=== PATIENT | female | born 1940 | race African-American/Black ===

== ENCOUNTER → 2018-02-28 | Outpatient (CLI) | payer OTHER, MEDICAID ==
[~2018-02-28] MED LIST: BIMA2.5D OP; CARV25TA2 PO; CLON0.1T PO; COLC1TAB PO; LETR2.5T18 PO; LEVO112T4 PO; LOSA100T7 PO; TRIA1TAB3 PO
--- NOTE | 2018-02-28 15:44 | KCIC ---
Bone densitometry 02/28/2018 1:41 PM Indication: Postmenopausal screening exam. Comparison Study: DEXA scan February 25, 2016.. Discussion: Bone Densitometry was performed with dual photon absorption of the lumbar spine and proximal left femur. Lumbar Spine: Bone average density is 1.43g/cm2 for L1-L4. T-Score is 4. (Prior T score 3.5 Left proximal femur:: Bone average density is 1.079g/cm2. T-Score is 1.1. (Prior T score 0.7) IMPRESSION: Normal bone mineral density of the lumbar spine and left proximal femur, similar to prior exam Note: Definitions established by the World Health Organization: Normal: T-score is -1.0 or above. Osteopenia: T-score is between -1.0 and -2.5. Osteoporosis: T-score is -2.5 or below. Electronically signed by: Julio C Ospina MD (02/28/2018 3:42 PM) [id number]
== END | disposition home or self-care (01) ==
LOC: KCIC DEXA 13:15
PROVIDERS: ATTEND Internal Medicine Hematology & Oncology
DX: Z13.820 Encounter for screening for osteoporosis (principal); Z78.0 Asymptomatic menopausal state; Z85.3 Personal history of malignant neoplasm of breast; Z92.3 Personal history of irradiation
CPT/HCPCS: 77080

== ENCOUNTER → 2018-03-21 | Outpatient (CLI) | payer OTHER, MEDICAID ==
--- NOTE | 2018-03-21 16:46 | KCIC ---
Bilateral diagnostic digital mammograms: Reason for examination: Right breast lump. History of left breast cancer with lumpectomy. Comparison is made to previous studies dated back to 02/06/2015. Interpretation was made with the benefit of CAD. The skin and nipples show no abnormalities. No abnormal axillary lymph nodes are seen. The breast parenchyma is heterogeneously dense. (Breast density: Category C) There are postop changes with residual architectural distortion in the left breast. In the right breast upper inner quadrant in the area of clinical concern there is no focal abnormality seen. There are no new dominant masses, suspicious calcifications or architectural distortion. A few benign calcifications are again seen. Impression: Postoperative changes in the left breast. No evidence of new or recurrent malignancy. Ultrasound to follow. Your patient's mammogram demonstrates that she has dense breast tissue (breast density category C or D), which could hide abnormalities, and if she has other risk factors for breast cancer that have been identified, she might benefit from supplemental screening tests that may be suggested by you as her ordering physician. Dense breast tissue, in and of itself, is a relatively common condition. Therefore, this information is not provided to cause undue concern, but rather to raise your awareness and to promote discussion with your patient regarding the presence of other risk factors, in addition to dense breast tissue. Your patient's mammography results will be sent to her. BI-RADS Category 0: Incomplete. Needs additional imaging evaluation. Right breast ultrasound: Ultrasound examination was performed in the area of clinical concern in the upper inner quadrant and in the axilla. No discrete cystic or solid nodules or architectural distortions are seen. No abnormal lymph nodes are seen in the axilla. IMPRESSION: No focal abnormalities evident in the right breast sonographically. Recommend clinical follow-up and routine mammographic follow-up. BI-RADS Category 2: Benign. "Our facility is accredited by the [employer] Mammography [employer]." This patient's information has been entered into a reminder system for the patient to be notified with the results of her examination and a target date for the next mammogram. Electronically signed by: Rina Guadarrama MD (03/21/2018 4:43 PM) [id number]
== END | disposition home or self-care (01) ==
LOC: KCIC MAMMO 10:09
PROVIDERS: ATTEND Pediatrics
DX: R92.8 Other abnormal and inconclusive findings on diagnostic imaging of breast (principal); Z85.3 Personal history of malignant neoplasm of breast; Z98.890 Other specified postprocedural states
CPT/HCPCS: 76641; 77066

== ENCOUNTER → 2019-03-09 | Outpatient (CLI) | payer OTHER, MEDICAID ==
[~2019-03-09] MED LIST changes: +FEMARA2.5 MG PO; -LETR2.5T18 PO; +LOSA100T14 PO; -LOSA100T7 PO
--- NOTE | 2019-03-09 16:02 | KCIC ---
Bilateral carotid arterial duplex study 03/09/2019 Clinical History: Hypertension. Carotid bruit. Technique: Using a combination of real-time ultrasound imaging and color-flow and pulse Doppler imaging techniques, duplex evaluation of the carotid and vertebral arterial structures within the neck was performed. Multiple images were obtained. Velocity measurements estimating the degree of stenosis are based on NASCET criteria. Findings: Very mild atheromatous/atherosclerotic plaque formation is seen involving both carotid bifurcations and proximal internal carotid arteries. The peak systolic velocities are not significantly elevated. No hemodynamically significant stenosis is seen. The vertebral arteries demonstrate normal antegrade flow. Impression: Very mild atheromatous/atherosclerotic plaque formation is seen involving both carotid bifurcations. No hemodynamically significant stenosis is seen. Electronically signed by: Filipe Alvarenga MD (03/09/2019 3:59 PM) [id number]
== END | disposition home or self-care (01) ==
LOC: KCIC US 14:32
PROVIDERS: ATTEND Pediatrics
DX: I65.23 Occlusion and stenosis of bilateral carotid arteries (principal); I10 Essential (primary) hypertension
CPT/HCPCS: 93880